=== PATIENT | male | born 1960 | race Asian ===

== ENCOUNTER 2020-12-28 18:12 | Emergency (ER) | payer OTHER ==
[2020-12-28 18:40] LABS: #Eosinphils 0.1 10x3/uL (0.0-0.5); #Monocytes 1.1 10x3/uL (0.0-1.1); #Neutrophils 6.3 10x3/uL (1.5-8.4); %Basophils 0.4 % (0.0-2.0); %Eosinophils 0.9 % (0.0-6.0); %Monocytes 11.3 % (0.0-10.0); %Neutrophils 64.7 % (40.0-75.0); Hemoglobin 13.3 g/dL (13.5-17.5); Mean Corpuscular HGB CONC 33.5 g/dL (32.0-36.0); Mean Corpuscular Hemoglobin 29.8 pg (27.0-33.0); Mean Corpuscular Volume 88.8 fl (81.2-95.1); Mean Platelet Volume 10.2 fl (7.4-10.4); Platelet Count 234 10x3/uL (150-450); RBC Distribution Width 13.2 % (11.5-14.5); Red Blood Cell (RBC) Count 4.47 10x6/uL (4.32-5.72); White Blood Cell (WBC) Count 9.7 10x3/uL (3.5-10.5)
[2020-12-28] MEDS ORDERED: Boostrix 0.5 ML (Tdap) VIAL ONE (18:40)
[2020-12-28 18:49] LABS: PTT 24.8 sec (22.0-33.0); Prothrombin Time 10.7 sec (9.5-12.1)
[2020-12-28 18:52] LABS: ALT (SGPT) 15 U/L (8-55); AST (SGOT) 25 U/L (5-34); Albumin 4.2 g/dL (3.5-5.0); Alkaline Phosphatase 79 U/L (40-110); Anion Gap 16 mmol/L (10-20); BUN (Urea Nitrogen) 16 mg/dL (8.4-25.7); Bilirubin, Total 1.2 mg/dL (0.2-1.2); Calc. Creatinine Clearance 0 mL/min (70-130); Calcium 8.5 mg/dL (7.8-10.44); Carbon Dioxide 23 mmol/L (22-29); Chloride 106 mmol/L (98-107); Globulin 3.5 g/dL (2.4-3.5); Glucose 100 mg/dL (70-105); Potassium 3.8 mmol/L (3.5-5.1); Protein, Total 7.7 g/dL (6.0-8.3); Sodium 141 mmol/L (136-145)
== END 2020-12-28 19:32 | disposition home or self-care (01) ==
LOC: CSHERS 18:12
DX: T63.001A Toxic effect of unspecified snake venom, accidental (unintentional), initial encounter (principal); Z23 Encounter for immunization
CPT/HCPCS: 80053; 85025; 85610; 85730; 90471; 90715